=== PATIENT | female | born 1955 | race Caucasian/White ===

== ENCOUNTER 2025-03-29 06:30 | Day surgery (SDC) | payer OTHER, BC ==
[2025-03-27 12:41] VITALS: BMI 20.5
[2025-03-29] MEDS ORDERED: BUPIVACAINE HCL/PF 0.25% (2.5MG/ML) 10 ML VIAL ONE (08:15)
[2025-03-29] MEDS ORDERED: DEXAMETHASONE SOD PHOSPHATE 4 MG/1 ML VIAL ONE (08:22)
[2025-03-29] MEDS ORDERED: LIDOCAINE HCL 2% 100 MG/5 ML DISP.SYRIN ONE (08:22)
[2025-03-29] MEDS ORDERED: ONDANSETRON 4 MG/2 ML VIAL ONE ×2 (08:22→10:00)
[2025-03-29] MEDS ORDERED: MIDAZOLAM HCL 2 MG/2 ML SINGLE DOSE VIAL ONE (08:23)
[2025-03-29] MEDS ORDERED: PROPOFOL 20 ML ONE (08:23)
[2025-03-29] MEDS ORDERED: SUCCINYLCHOLINE CHLORIDE 200 MG/10 ML SYRINGE ONE (08:24)
[2025-03-29] MEDS: BUPIVACAINE HCL/PF 0.25% (2.5MG/ML) 10 ML VIAL IJ ONE (08:57)
[2025-03-29] MEDS ORDERED: LACTATED RINGERS SOLUTION 1,000 ML IV SCH (09:00)
[2025-03-29] MEDS ORDERED: FENTANYL CITRATE/PF 50 MCG/ML VIAL ONE ×3 (09:30→09:57)
[2025-03-29 09:52] VITALS: RESP 16
[2025-03-29] MEDS: ONDANSETRON 4 MG/2 ML VIAL IVPUSH PRN (10:00)
[2025-03-29] MEDS ORDERED: METOCLOPRAMIDE HCL INJECTION 10 MG/2 ML VIAL IVPUSH ONE (11:02)
[2025-03-29 11:57] VITALS: TEMP 97.5
[2025-03-29 12:05] VITALS: BP 108/65; PULSE 68
== END 2025-03-29 11:40 | disposition home or self-care (01) ==
LOC: FASU 06:30 → EDSEX 11:15 → FASU 11:40
PROVIDERS: ATTEND Orthopaedic Surgery Sports Medicine
PROC: 0SBC4ZZ Excision of Right Knee Joint, Percutaneous Endoscopic Approach (ICD-10-PCS; principal; 2025-03-29 08:47)
DX: S83.281A Other tear of lateral meniscus, current injury, right knee, initial encounter (principal); X58.XXXA Exposure to other specified factors, initial encounter; Y92.9 Unspecified place or not applicable; Y93.9 Activity, unspecified
CPT/HCPCS: 82962; 94760